=== PATIENT | female | born 1965 | race Caucasian/White ===

== ENCOUNTER 2017-07-23 09:56 | Day surgery (SDC) | payer BC ==
[~2017-07-23] VITALS: Ht 157.5 cm; Wt 71.4 kg
[2017-07-23] MEDS ORDERED: LACTATED RINGERS 1,000 ML IV SCH (10:23)
[2017-07-23 10:26] VITALS: BP 149/93
[2017-07-23] MEDS ORDERED: LEVO125T PO (10:26)
[2017-07-23] MEDS ORDERED: BUPR300T49 PO (10:26)
[2017-07-23] MEDS ORDERED: LISI-170 PO (10:26)
[2017-07-23 10:30] LABS: HCG UR LOT HCG7030192
[2017-07-23] MEDS ORDERED: LIDOCAINE 1%, 2ML SQ PRN (10:30)
[2017-07-23 10:37] LABS: HCG UR OBC PASS
[2017-07-23] MEDS ORDERED: MIDAZOLAM 1 MG/ML, 2ML ONE (12:09)
[2017-07-23] MEDS ORDERED: PROPOFOL 10 MG/ML, 50ML ONE (12:11)
[2017-07-23] MEDS ORDERED: PROPOFOL 10 MG/ML, 20ML ONE (12:11)
== END 2017-07-23 14:47 ==
LOC: OUT 09:56
PROVIDERS: ATTEND Internal Medicine Geriatric Medicine
DX: C20 Malignant neoplasm of rectum (principal); K64.8 Other hemorrhoids; E03.9 Hypothyroidism, unspecified; I10 Essential (primary) hypertension; Z87.19 Personal history of other diseases of the digestive system; Z98.890 Other specified postprocedural states
CPT/HCPCS: 45341; 81025; J2250; J2704; J7120

== ENCOUNTER 2017-08-03 10:20 | Day surgery (SDC) | payer BC ==
[~2017-08-03] VITALS: Ht 157.5 cm; Wt 73.9 kg
[~2017-08-03 10:20] MED LIST: BUPIVACAINE/PF 0.5% ONE; BUPR300T49 PO; EPINEPHRINE 1 MG/ML, 1ML ONE; LEVO125T PO; LISI-170 PO
[2017-08-03] MEDS ORDERED: MIDAZOLAM 1 MG/ML, 2ML ONE (10:44)
[2017-08-03] MEDS ORDERED: FENTANYL PF 100 MCG/2ML ONE ×2 (10:44)
[2017-08-03] MEDS ORDERED: PROPOFOL 10 MG/ML, 20ML ONE (10:45)
[2017-08-03] MEDS ORDERED: ROCURONIUM 10 MG/ML,10ML ONE (10:46)
[2017-08-03] MEDS ORDERED: NEOSTIGMINE 1 MG/ML, 10ML ONE (10:47)
[2017-08-03] MEDS ORDERED: GLYCOPYRROLATE 0.2MG/1ML, 5ML ONE (10:47)
[2017-08-03] MEDS ORDERED: ONDANSETRON 2MG/ML, 2ML ONE ×2 (10:48)
[2017-08-03] MEDS ORDERED: DEXAMETHASONE 4 MG/ML, 1ML ONE ×2 (10:48)
[2017-08-03 11:03] VITALS: BP 139/86
[2017-08-03] MEDS ORDERED: LACTATED RINGERS 1,000 ML IV SCH (11:12)
[2017-08-03 11:23] LABS: HCG UR SG 1.012 (1.003-1.030)
[2017-08-03] MEDS ORDERED: BUPIVACAINE LIPOSOME/PF INFIL ONE (11:30)
[2017-08-03] MEDS ORDERED: MEPERIDINE/PF 25MG/0.5ML IVPush PRN (12:00)
[2017-08-03] MEDS ORDERED: ONDANSETRON 2MG/ML, 2ML IVPush PRN (12:00)
[2017-08-03] MEDS ORDERED: OXYcodone 5 MG/5 ML ORAL.SOL UDC PO PRN ×2 (12:00→14:00)
[2017-08-03] MEDS ORDERED: ACETAMINOPHEN 325 MG TABLET PO PRN (12:00)
[2017-08-03] MEDS ORDERED: PROMETHAZINE 25 MG/ML, 1ML IV PRN (12:00)
[2017-08-03] MEDS ORDERED: FENTANYL PF 100 MCG/2ML IV PRN (12:00)
[2017-08-03] MEDS ORDERED: hydrALAzine 20 MG/ML, 1ML IV PRN (12:00)
[2017-08-03] MEDS ORDERED: LABETALOL 5MG/ML, 20ML IV PRN (12:00)
[2017-08-03] MEDS ORDERED: HYDROmorphone 1 MG/ML, 1ML IV PRN (12:00)
[2017-08-03] MEDS ORDERED: DIPHENHYDRAMINE 50 MG/ML, 1ML ONE (16:37)
[2017-08-03] MEDS ORDERED: DIPHENHYDRAMINE 50 MG/ML, 1ML IVPush ONE (17:00)
== END 2017-08-03 18:00 ==
LOC: OUT 10:20
PROVIDERS: ATTEND Surgery
DX: C20 Malignant neoplasm of rectum (principal); F32.9 Major depressive disorder, single episode, unspecified; I10 Essential (primary) hypertension; E03.9 Hypothyroidism, unspecified; Z88.1 Allergy status to other antibiotic agents
CPT/HCPCS: 45171; 81025; 88305; J0171; J1100; J1200; J2250; J2405; J2704; J2710; J3010; J3490; J7120; C9290

== ENCOUNTER 2018-07-09 06:50 | Day surgery (SDC) | payer BC, OTHER ==
[~2018-07-09] VITALS: Ht 156.2 cm; Wt 71.4 kg
[~2018-07-09 06:50] MED LIST changes: -BUPIVACAINE/PF 0.5% ONE; -EPINEPHRINE 1 MG/ML, 1ML ONE
[2018-07-09] MEDS ORDERED: LACTATED RINGERS 1,000 ML IV SCH (07:16)
[2018-07-09 07:40] VITALS: BP 124/79
[2018-07-09] MEDS ORDERED: PROPOFOL 10 MG/ML, 20ML ONE (08:32)
[2018-07-09] MEDS ORDERED: LABETALOL 5MG/ML, 20ML IV PRN (09:00)
[2018-07-09] MEDS ORDERED: hydrALAzine 20 MG/ML, 1ML IV PRN (09:00)
[2018-07-09] MEDS ORDERED: ONDANSETRON 2MG/ML, 2ML IV PRN (09:00)
[2018-07-09] MEDS ORDERED: MEPERIDINE/PF 25MG/0.5ML IVPush PRN (09:00)
[2018-07-09] MEDS ORDERED: FENTANYL PF 100 MCG/2ML ONE (09:24)
== END 2018-07-09 10:40 | disposition home or self-care (01) ==
LOC: OUT 06:50
PROVIDERS: ATTEND Internal Medicine Geriatric Medicine
DX: Z08 Encounter for follow-up examination after completed treatment for malignant neoplasm (principal); D12.4 Benign neoplasm of descending colon; D12.3 Benign neoplasm of transverse colon; K62.1 Rectal polyp; K57.30 Diverticulosis of large intestine without perforation or abscess without bleeding; K64.0 First degree hemorrhoids; I10 Essential (primary) hypertension; F32.9 Major depressive disorder, single episode, unspecified; E03.9 Hypothyroidism, unspecified; Z85.048 Personal history of other malignant neoplasm of rectum, rectosigmoid junction, and anus; Z88.1 Allergy status to other antibiotic agents
CPT/HCPCS: 45380; 88305; J2704; J3010; J7120

== ENCOUNTER 2019-09-09 05:59 | Day surgery (SDC) | payer BC, OTHER ==
[~2019-09-09] VITALS: Ht 157.5 cm; Wt 74.0 kg
[2019-09-09 06:36] VITALS: BP 137/84
[2019-09-09] MEDS ORDERED: MIDAZOLAM 1 MG/ML, 2ML ONE (07:04)
[2019-09-09] MEDS ORDERED: PROPOFOL 50 ML ONE (07:04)
[2019-09-09] MEDS ORDERED: LACTATED RINGERS 1,000 ML IV SCH (07:08)
[2019-09-09 07:13] LABS: HCG UR SG 1.021 (1.003-1.030)
[2019-09-09] MEDS ORDERED: OXYcodone 5 MG/5 ML ORAL.SOL UDC PO PRN (07:30)
[2019-09-09] MEDS ORDERED: FENTANYL PF 100 MCG/2ML IV PRN (07:30)
[2019-09-09] MEDS ORDERED: LORazepam 2 MG/ML, 1ML IVPush PRN (07:30)
[2019-09-09] MEDS ORDERED: ACETAMINOPHEN 325 MG TABLET PO PRN (07:30)
[2019-09-09] MEDS ORDERED: ONDANSETRON 2MG/ML, 2ML IV PRN (07:30)
== END 2019-09-09 09:40 | disposition home or self-care (01) ==
LOC: OUT 05:59
PROVIDERS: ATTEND Internal Medicine Geriatric Medicine
DX: C20 Malignant neoplasm of rectum (principal); K62.1 Rectal polyp; K64.0 First degree hemorrhoids; I10 Essential (primary) hypertension; Z88.1 Allergy status to other antibiotic agents
CPT/HCPCS: 45380; 45390; 45391; 81025; 88305; J2250; J2704; J7120

== ENCOUNTER → 2020-09-01 | Outpatient (CLI) | payer BC, OTHER ==
[~2020-09-01] MED LIST changes: +LEVO100T PO
[2020-09-01 15:49] LABS: ALBUMIN 4.3 g/dL (3.4-5.0); ANION GAP 5 mmol/L (5-15); CALCIUM 9.6 mg/dL (8.5-10.1); CHLORIDE 106 mmol/L (98-107)
[2020-09-01 15:54] LABS: ALANINE AMINOTRANSFERASE 26 U/L (12-78); ALKALINE PHOSPHATASE 113 U/L (45-117); BILIRUBIN,TOTAL 0.4 mg/dL (0.2-1.0); CREATININE 1.18 mg/dL (0.55-1.02); TOTAL PROTEIN 7.7 g/dL (6.4-8.2)
== END | disposition home or self-care (01) ==
LOC: STAR 14:57
PROVIDERS: ATTEND Internal Medicine Geriatric Medicine
DX: Z01.812 Encounter for preprocedural laboratory examination (principal); Z20.828 Contact with and (suspected) exposure to other viral communicable diseases; C20 Malignant neoplasm of rectum
CPT/HCPCS: 80053; 87635

== ENCOUNTER 2020-09-07 05:40 | Day surgery (SDC) | payer BC, OTHER ==
[~2020-09-07] VITALS: Ht 157.5 cm; Wt 78.0 kg
[2020-09-07] MEDS ORDERED: CHLORHEXIDINE 15 ML UDC MM STA (06:03)
[2020-09-07 06:06] VITALS: BP 124/85
[2020-09-07] MEDS ORDERED: LACTATED RINGERS 1,000 ML IV SCH (06:30)
[2020-09-07 06:44] LABS: HCG UR SG 1.013 (1.003-1.030)
[2020-09-07] MEDS ORDERED: FENTANYL PF 100 MCG/2ML ONE (06:52)
[2020-09-07] MEDS ORDERED: ONDANSETRON 2MG/ML, 2ML ONE (07:48)
[2020-09-07] MEDS ORDERED: PROPOFOL 10 MG/ML, 20ML ONE (07:48)
[2020-09-07] MEDS ORDERED: PHENYLEPHRINE 10 MG/ML ONE (07:48)
[2020-09-07] MEDS ORDERED: DIPHENHYDRAMINE 50 MG/ML, 1ML IM PRN (08:30)
[2020-09-07] MEDS ORDERED: METOCLOPRAMIDE 5 MG/ML, 2ML IVPush PRN (08:30)
[2020-09-07] MEDS ORDERED: LABETALOL 5MG/ML, 20ML IV PRN (08:30)
[2020-09-07] MEDS ORDERED: HALOPERIDOL 5 MG/ML IV PRN (08:30)
[2020-09-07] MEDS ORDERED: ONDANSETRON 2MG/ML, 2ML IVPush PRN (08:30)
[2020-09-07] MEDS ORDERED: OXYcodone 5 MG/5 ML ORAL.SOL UDC PO PRN (08:30)
[2020-09-07] MEDS ORDERED: FENTANYL PF 100 MCG/2ML IV PRN (08:30)
[2020-09-07] MEDS ORDERED: LORazepam 2 MG/ML, 1ML IVPush PRN (08:30)
[2020-09-07] MEDS ORDERED: ACETAMINOPHEN 325 MG TABLET PO PRN (08:30)
[2020-09-07] MEDS ORDERED: hydrALAzine 20 MG/ML, 1ML IV PRN (08:30)
[2020-09-07] MEDS ORDERED: PROMETHAZINE 12.5 MG SUPP PR PRN (08:30)
[2020-09-07] MEDS ORDERED: HYDROmorphone 1 MG/ML, 1ML INJ IVPush PRN (08:30)
[2020-09-07] MEDS ORDERED: METOPROLOL 1 MG/ML, 5ML IV PRN (08:30)
[2020-09-07] MEDS ORDERED: EPHEDRINE 50 MG/ML, 1ML IVPush PRN (08:30)
== END 2020-09-07 09:30 | disposition home or self-care (01) ==
LOC: OUT 05:40
PROVIDERS: ATTEND Internal Medicine Geriatric Medicine
DX: Z08 Encounter for follow-up examination after completed treatment for malignant neoplasm (principal); I10 Essential (primary) hypertension; F32.9 Major depressive disorder, single episode, unspecified; E66.9 Obesity, unspecified; Z68.31 Body mass index [BMI] 31.0-31.9, adult; Z88.2 Allergy status to sulfonamides; Z88.1 Allergy status to other antibiotic agents; Z79.899 Other long term (current) drug therapy; Z72.89 Other problems related to lifestyle; Z86.010 Personal history of colon polyps; Z82.49 Family history of ischemic heart disease and other diseases of the circulatory system; Z83.3 Family history of diabetes mellitus
CPT/HCPCS: 45391; 81025; J2370; J2405; J2704; J3010; J7120